=== PATIENT | male | born 1985 | race African-American/Black ===

== ENCOUNTER 2020-07-07 18:34 | Inpatient (IN) | payer MEDICAID, OTHER, SELFPAY ==
[~2020-07-07] VITALS: Ht 175.3 cm; Wt 89.0 kg
[2020-07-07] MEDS ORDERED: ACETAMINOPHEN 500 MG TAB PO ONE ×2 (19:00→23:45)
[2020-07-07 19:33] LABS: Basophils # (auto) 0 10 ^3/uL (0-0.2); Basophils % (auto) 0.2 % (0.0-2.0); Eosinophils # (auto) 0 10 ^3/uL (0-0.8); Hematocrit 45.5 % (41.0-53.0); Hemoglobin 15.6 g/dL (13.5-17.5); Lymphocytes # (auto) 0.5 10 ^3/uL (0.4-5.4); Lymphocytes % (auto) 6.9 % (10.0-50.0); Mean Corpuscular Hemoglobin 28.2 pg (28.0-32.0); Mean Corpuscular Hgb Conc. 34.2 g/dL (32.0-36.0); Mean Corpuscular Volume 82.5 fL (80.0-100.0); Monocytes # (auto) 0.3 10 ^3/uL (0-1.3); Monocytes % (auto) 3.7 % (0.0-12.0); Neutrophils # (auto) 6.6 10 ^3/uL (1.6-8.6); Neutrophils % (auto) 89.2 % (37.0-80.0); Nucleated Red Blood Cells % 0.2 %; Platelet Count (auto) 227 10^3/uL (140-450); Red Blood Cells 5.52 10^6/uL (4.5-5.90); Red Cell Distribution Width 13.8 % (11.8-14.3); White Blood Cell 7.4 10^3/uL (4.4-10.8)
[2020-07-07 19:48] LABS: Albumin 3.6 g/dL (3.4-5.0); Calcium 8.6 mg/dL (8.5-10.1); Potassium 3.1 mmol/L (3.5-5.1)
[2020-07-07 19:53] LABS: BUN/Creatinine Ratio 14.7; Bilirubin, Total 0.6 mg/dL (0.2-1.0); Total Protein 8.9 g/dL (6.4-8.2)
[2020-07-07 23:03] LABS: INR 1.08 (0.9-1.15); Partial Thromboplastin Time 33.3 sec (23.0-31.2)
[2020-07-07] MEDS ORDERED: SODIUM CHLORIDE 0.9% 2,000 ML IV ONE (23:45)
[2020-07-07] MEDS ORDERED: AZITHROMYCIN 500MG/ 250ML 250 ML IV ONE (23:45)
[2020-07-07] MEDS ORDERED: POTASSIUM CHL 20MEQ/100ML 100 ML IV ONE (23:45)
[2020-07-07] MEDS ORDERED: DexAMETHasone SOD PHOS 10MG/1ML VIAL INJ IV ONE (23:45)
[2020-07-07] MEDS ORDERED: DOXYCYCLINE 100MG/250ML 250 ML IV ONE (23:45)
[2020-07-07] MEDS ORDERED: POTASSIUM EFFERVESENT TAB 25 MEQ PO ONE (23:45)
[2020-07-08] MEDS ORDERED: ONDANSETRON HCL 4 MG/2 ML VIAL IV ONE
[2020-07-08] MEDS ORDERED: ACETAMINOPHEN 325 MG TAB PO PRN (03:15)
[2020-07-08] MEDS ORDERED: NITROGLYCERIN 0.4 MG SL TAB SL PRN (03:15)
[2020-07-08] MEDS ORDERED: MORPHINE SULF INJ 2 MG/ML SYRINGE 1ML IV PRN (03:15)
[2020-07-08] MEDS ORDERED: ONDANSETRON HCL 4 MG/2 ML VIAL IV PRN (03:15)
[2020-07-08] MEDS ORDERED: DOCUSATE SOD 100 MG CAP PO PRN (03:15)
[2020-07-08] MEDS ORDERED: HYDROcodone-ACET 5/325MG TAB PO PRN (03:15)
[2020-07-08 03:39] VITALS: BP 103/65
[2020-07-08 04:27] LABS: Basophils # (auto) 0 10 ^3/uL (0-0.2); Basophils % (auto) 0.1 % (0.0-2.0); Eosinophils # (auto) 0 10 ^3/uL (0-0.8); Hematocrit 41.3 % (41.0-53.0); Lymphocytes # (auto) 0.5 10 ^3/uL (0.4-5.4); Lymphocytes % (auto) 7.2 % (10.0-50.0); Mean Corpuscular Volume 82.5 fL (80.0-100.0); Monocytes # (auto) 0.2 10 ^3/uL (0-1.3); Monocytes % (auto) 2.7 % (0.0-12.0); Nucleated Red Blood Cells % 0.1 %; Platelet Count (auto) 216 10^3/uL (140-450); Red Blood Cells 5.01 10^6/uL (4.5-5.90); Red Cell Distribution Width 13.8 % (11.8-14.3); White Blood Cell 6.7 10^3/uL (4.4-10.8)
[2020-07-08 04:43] VITALS: BP 108/67
[2020-07-08 04:46] LABS: Albumin 2.9 g/dL (3.4-5.0); Calcium 7.6 mg/dL (8.5-10.1); Potassium 3.8 mmol/L (3.5-5.1)
[2020-07-08 04:49] LABS: BUN/Creatinine Ratio 16.7; Bilirubin, Total 0.5 mg/dL (0.2-1.0); Total Protein 7.3 g/dL (6.4-8.2)
[2020-07-08] MEDS: SODIUM CHLOR 0.9% PF (SALINE LOCK) 10ML VIAL/SYR IV SCH ×3 (06:08→21:03)
[2020-07-08 09:00] VITALS: BP 119/67
[2020-07-08] MEDS: DOXYCYCLINE 100MG/250ML 250 ML IV SCH ×2 (09:18→21:04)
[2020-07-08] MEDS: DexAMETHasone SOD PHOS 10MG/1ML VIAL INJ IV SCH (09:18)
[2020-07-08] MEDS: MULTIPLE VITAMIN TAB PO SCH (09:18)
[2020-07-08] MEDS: ZINC SULFATE 220mg CAP or TAB PO SCH (09:18)
[2020-07-08] MEDS: ENOXAPARIN SOD 40 MG/0.4 ML SYRINGE SC SCH (09:19)
[2020-07-08] MEDS: FAMOTIDINE 20 MG TAB PO SCH ×2 (09:19→21:04)
[2020-07-08] MEDS: CHOLECALCIFEROL (VITD3) 2,000 UNIT CAP/TAB PO SCH (09:19)
[2020-07-08] MEDS: ASCORBIC ACID 500 MG TAB PO SCH ×2 (09:19→21:04)
[2020-07-08] MEDS: ALBUTEROL SULF HFA 90MCG INH 200DOSE IN PRN ×2 (10:35→22:35)
[2020-07-08] MEDS: BUDESONIDE (INHALATION) 180 MCG IH IN SCH ×2 (10:35→22:35)
[2020-07-08] MEDS ORDERED: guaiFENesin-DM 100/10mg/5ml SYR PO PRN ×2 (12:30)
[2020-07-08 13:00] VITALS: BP 106/64
[2020-07-08 17:00] VITALS: BP 113/73
[2020-07-08] MEDS: guaiFENesin-DM 100/10mg/5ml SYR PO PRN ×2 (18:25→22:43)
[2020-07-08 21:34] VITALS: BP 106/63
[2020-07-09 05:32] VITALS: BP 111/67
[2020-07-09] MEDS: SODIUM CHLOR 0.9% PF (SALINE LOCK) 10ML VIAL/SYR IV SCH ×3 (05:37→21:33)
[2020-07-09 06:11] LABS: Basophils # (auto) 0 10 ^3/uL (0-0.2); Basophils % (auto) 0.2 % (0.0-2.0); Eosinophils # (auto) 0 10 ^3/uL (0-0.8); Hemoglobin 14.5 g/dL (13.5-17.5); Lymphocytes # (auto) 0.9 10 ^3/uL (0.4-5.4); Mean Corpuscular Hemoglobin 28.4 pg (28.0-32.0); Mean Corpuscular Hgb Conc. 34.5 g/dL (32.0-36.0); Mean Corpuscular Volume 82.1 fL (80.0-100.0); Monocytes # (auto) 0.6 10 ^3/uL (0-1.3); Monocytes % (auto) 7.4 % (0.0-12.0); Neutrophils % (auto) 82.4 % (37.0-80.0); Nucleated Red Blood Cells % 0.1 %; Platelet Count (auto) 272 10^3/uL (140-450); Red Blood Cells 5.12 10^6/uL (4.5-5.90); Red Cell Distribution Width 13.8 % (11.8-14.3); White Blood Cell 8.5 10^3/uL (4.4-10.8)
[2020-07-09 06:30] LABS: Albumin 2.8 g/dL (3.4-5.0); Calcium 8.3 mg/dL (8.5-10.1); Potassium 3.7 mmol/L (3.5-5.1)
[2020-07-09 06:34] LABS: BUN/Creatinine Ratio 21.3; Bilirubin, Total 0.4 mg/dL (0.2-1.0); Total Protein 7.5 g/dL (6.4-8.2)
[2020-07-09] MEDS: BUDESONIDE (INHALATION) 180 MCG IH IN SCH (07:10)
[2020-07-09] MEDS: ALBUTEROL SULF HFA 90MCG INH 200DOSE IN PRN (07:10)
[2020-07-09] MEDS: guaiFENesin-DM 100/10mg/5ml SYR PO PRN (07:56)
[2020-07-09 09:00] VITALS: BP 106/69
[2020-07-09] MEDS: DexAMETHasone SOD PHOS 10MG/1ML VIAL INJ IV SCH (09:32)
[2020-07-09] MEDS: DOXYCYCLINE 100MG/250ML 250 ML IV SCH ×2 (09:32→21:32)
[2020-07-09] MEDS: ENOXAPARIN SOD 40 MG/0.4 ML SYRINGE SC SCH (09:33)
[2020-07-09] MEDS: ASCORBIC ACID 500 MG TAB PO SCH ×2 (09:33→21:33)
[2020-07-09] MEDS: FAMOTIDINE 20 MG TAB PO SCH ×2 (09:33→21:32)
[2020-07-09] MEDS: ZINC SULFATE 220mg CAP or TAB PO SCH (09:33)
[2020-07-09] MEDS: CHOLECALCIFEROL (VITD3) 2,000 UNIT CAP/TAB PO SCH (09:33)
[2020-07-09] MEDS: MULTIPLE VITAMIN TAB PO SCH (09:33)
[2020-07-09] MEDS ORDERED: cefTRIAXone 1GM/50ML D5W 50 ML IV ONE (11:15)
[2020-07-09 13:00] VITALS: BP 108/73
[2020-07-09 17:00] VITALS: BP 121/71
[2020-07-09 22:00] VITALS: BP 111/67
[2020-07-10 04:32] VITALS: BP 114/72
[2020-07-10] MEDS: SODIUM CHLOR 0.9% PF (SALINE LOCK) 10ML VIAL/SYR IV SCH ×2 (06:00→14:00)
[2020-07-10 08:30] VITALS: BP 102/52
[2020-07-10] MEDS ORDERED: cefTRIAXone 1GM/50ML D5W 50 ML IV SCH (09:00)
[2020-07-10] MEDS: DexAMETHasone SOD PHOS 10MG/1ML VIAL INJ IV SCH (10:09)
[2020-07-10] MEDS: ZINC SULFATE 220mg CAP or TAB PO SCH (10:10)
[2020-07-10] MEDS: DOXYCYCLINE 100MG/250ML 250 ML IV SCH (10:11)
[2020-07-10] MEDS: ASCORBIC ACID 500 MG TAB PO SCH (10:11)
[2020-07-10] MEDS: FAMOTIDINE 20 MG TAB PO SCH (10:11)
[2020-07-10] MEDS: MULTIPLE VITAMIN TAB PO SCH (10:11)
[2020-07-10] MEDS: CHOLECALCIFEROL (VITD3) 2,000 UNIT CAP/TAB PO SCH (10:12)
[2020-07-10] MEDS: ENOXAPARIN SOD 40 MG/0.4 ML SYRINGE SC SCH (10:12)
[2020-07-10] MEDS: guaiFENesin-DM 100/10mg/5ml SYR PO PRN (10:46)
[2020-07-10 12:30] VITALS: BP 115/72
== END 2020-07-10 16:10 | disposition home or self-care (01) | DRG 137 ==
LOC: ER 18:34 → TELE 07-08 03:05 → TELE-EAST 07-08 04:20
PROVIDERS: ADMIT Nurse Practitioner Family; ATTEND Family Medicine
DX: U07.1 COVID-19 (principal); J96.01 Acute respiratory failure with hypoxia; J12.82 Pneumonia due to coronavirus disease 2019; E87.6 Hypokalemia; Z80.0 Family history of malignant neoplasm of digestive organs
CPT/HCPCS: 36415; 71045; 71250; 80053; 82728; 83036; 83605; 83880; 84484; 85025; 85379; 85610; 85730; 87040; 87070; 87205; 87426; 93005; 94640; 96365; 96366; 96368; 96375; G0378; J0696; J1100; J2405; J3480; J3490